=== PATIENT | female | born 1945 | race Caucasian/White ===

== ENCOUNTER 2018-11-23 20:46 | Inpatient (IN) | payer MEDICARE, OTHER ==
[~2018-11-23] VITALS: Ht 170.2 cm; Wt 57.2 kg
--- NOTE | 2018-11-23 21:08 | NUR ---
PT TO CT
--- NOTE | 2018-11-23 21:25 | NUR ---
PT'S DAUGHTER AT BEDSIDE. C/O "REALLY BAD SANTOS". DAUGHTER REPORTS PT "IS NOT A COMPLAINER AND NEVER COMPLAINS".
[2018-11-23 21:30] LABS: BASOPHILS % (AUTO) 0.2 % (0-1); EOSINOPHILS # (AUTO) 0.1 X10'3 (0-0.9); EOSINOPHILS % (AUTO) 1.4 % (0-6); HEMATOCRIT 40.9 % (35.0-45.0); HEMOGLOBIN 14.2 g/dl (12.0-16.0); MEAN CORPUSCULAR HGB CONC 34.6 % (33.0-36.5); MEAN CORPUSCULAR VOLUME 95.3 FL (78-98); MEAN PLATELET VOLUME 7.8 FL (7.4-10.4); MONOCYTES # (AUTO) 0.9 X10'3 (0-0.9); MONOCYTES % (AUTO) 8.8 % (2-12); NEUTROPHILS # (AUTO) 7.8 X10'3 (1.8-7.7); NEUTROPHILS % (AUTO) 79.6 % (42-75); PLATELET COUNT 286 X10'3 (140-440); RED CELL DISTRIBUTION WIDTH 13.4 % (11.5-14.5); WHITE BLOOD COUNT 9.7 X10'3 (4.5-11.0)
[2018-11-23 21:40] LABS: PARTIAL THROMBOPLASTIN TIME 27 SECONDS (22-32); PROTHROMBIN TIME 9.7 SECONDS (9.0-12.0)
[2018-11-23] MEDS ORDERED: acetaminophen 325mg tablet PO ONE (21:40)
--- NOTE | 2018-11-23 21:41 | NUR ---
PT WITH SEVERE SANTOS, DR CESAR UPDATED AND ALSO THAT PT NEED TO VOID. HE REQUESTS A UA. PT AGREEABLE TO SC. DAUGHTER AT [facility]
[2018-11-23 21:42] LABS: ALANINE AMINOTRANSFERASE 28 U/L (12-78); ALBUMIN/GLOBULIN RATIO 1.2 (1.1-1.5); ALKALINE PHOSPHATASE 54 IU/L (46-116); ANION GAP 10 (8-16); ASPARTATE AMINO TRANSFERASE 19 U/L (10-37); BILIRUBIN,TOTAL 0.6 MG/DL (0.1-1.0); BLOOD UREA NITROGEN 13 MG/DL (7-18); BUN/CREATININE RATIO 22.8 (6.6-38.0); CALCIUM 9.5 MG/DL (8.5-10.1); CHLORIDE 96 MMOL/L (99-107); CREATININE 0.57 MG/DL (0.40-0.90); GLUCOSE 119 MG/DL (70-104); POTASSIUM 3.2 MMOL/L (3.5-5.1); SODIUM 135 MMOL/L (135-145); TOTAL CARBON DIOXIDE 29.2 MMOL/L (24-32); TOTAL PROTEIN 7.3 G/DL (6.4-8.2); eGFR > 90 ML/MIN
[2018-11-23 21:46] LABS: TROPONIN I < 0.04 NG/ML (0.0-0.05)
--- NOTE | 2018-11-23 21:47 | NUR ---
PT TOOK HER "RESCUE MEDS" (3 IBUPROFEN AND ONE 0.5 ATIVAN) AT NOON TODAY. THIS IS A REGIME PERSCRIBED BY HER NEURLOGIST FOR WHEN SEVER SANTOS'S ARISE. PT HAS THESE EPISODES OF SEVERE SANTOS ACCOMPANIED WITH LEFT ARM NUMBNESS EVERY "6 MONTHS" (LAST IN APRIL 2018). SHE REPORTS THAT IS SHE HAS ANY ALCOHOL IT MAY BRING THEM ON. SHE LAST HAD EGGNOG AND VODKA LAST NIGHT.
[2018-11-23] MEDS ORDERED: aspirin 325mg tablet PO ONE (21:50)
[2018-11-23] MEDS ORDERED: iohexol 350MG/ML 100ml bottle IV ONE (22:14)
[2018-11-23 23:40] LABS: CLARITY,URINE SLIGHTLY CLOUDY (Clear); COLOR,URINE YELLOW (Yellow); GLUCOSE, URINE NEGATIVE (Neg); KETONES,URINE NEGATIVE (Neg); LEUKOCYTE ESTERASE ,URINE NEGATIVE (Neg); NITRITES, URINE POSITIVE (Neg); OCCULT BLOOD,URINE NEGATIVE (Neg); PROTEIN,URINE NEGATIVE (Neg); UROBILINOGEN,URINE 0.2 E.U/dL (0.2-1.0)
[2018-11-23 23:42] LABS: UA COLLECTION TYPE STRAIGHT CATH
[2018-11-24] MEDS ORDERED: CHOL400T14 PO (00:05)
[2018-11-24] MEDS ORDERED: ASCO500C15 PO (00:05)
[2018-11-24] MEDS ORDERED: GLUC100017 (00:05)
[2018-11-24] MEDS ORDERED: VITE1000C PO (00:05)
[2018-11-24 00:06] LABS: BACTERIA,URINE 4+ /HPF (Neg); MUCUS STRANDS NONE SEEN /LPF (Neg); RBC,URINE 0-2 /HPF (0-2); SQUAMOUS EPITHELIAL CELL,UR FEW /LPF (FEW); WBC,URINE 0-4 /HPF (0-4)
[2018-11-24] MEDS ORDERED: AMLO2.5T2 PO (00:10)
[2018-11-24] MEDS ORDERED: POTA10TA19 PO (00:10)
[2018-11-24] MEDS ORDERED: ASPI-1265 PO (00:10)
[2018-11-24] MEDS ORDERED: HYDR12.5 PO (00:10)
[2018-11-24] MEDS ORDERED: LEVE10006 (00:10)
[2018-11-24] MEDS ORDERED: ATEN25TA PO (00:11)
[2018-11-24] MEDS ORDERED: NORT25CA PO (00:12)
[2018-11-24] MEDS ORDERED: PRAV40TA3 PO (00:13)
[2018-11-24] MEDS ORDERED: CALC-627 (00:13)
--- NOTE | 2018-11-24 00:14 | NUR ---
MED REC PARTIALLY COMPLETED. PT ONLY KNOWS THE NAMES OF ALL THE MEDS SHE TKAES BUT DOES NOT KNOW THE DOSING SPECIFICS.
--- NOTE | 2018-11-24 00:18 | NUR ---
DR. ZHU AWARE THAT SPECIFIC DOSING ON MED REC IS NOT COMPLETED.
[2018-11-24] MEDS ORDERED: ondansetron/PF 4mg/2ml inj IV PRN (00:40)
[2018-11-24] MEDS ORDERED: HYDROmorphone 1 mg/ml syringe IV PRN (00:40)
[2018-11-24] MEDS ORDERED: HYDROmorphone inj. 0.5 MG/0.5 ML DISP.SYRIN IV PRN (00:40)
[2018-11-24] MEDS ORDERED: mag hydrox/Alum hydrox/simeth 30ml oral suspension PO PRN (00:40)
[2018-11-24] MEDS ORDERED: acetaminophen 325mg tablet PO PRN (00:40)
[2018-11-24] MEDS ORDERED: magnesium hydroxide 30ml (MOM) UD suspension PO PRN (00:40)
[2018-11-24 01:30] VITALS: BP 134/74
[2018-11-24] MEDS ORDERED: nortriptyline 25mg capsule PO ONE (04:25)
[2018-11-24] MEDS ORDERED: potassium Cl 40MEQ/NS 500ml 500 ML IV PRN ×2 (04:25)
[2018-11-24] MEDS ORDERED: potassium Cl 20 mEq SR tablet PO PRN (04:25)
[2018-11-24 06:24] LABS: MAGNESIUM 1.7 MG/DL (1.5-2.4); POTASSIUM 3.1 MMOL/L (3.5-5.1)
--- NOTE | 2018-11-24 06:30 | NUR ---
Patient in room ORTHO 4012. I have received report from SHAHEED Thornton and had the opportunity to ask questions and assume patient care.
[2018-11-24] MEDS ORDERED: levetiracetam 250mg tablet PO SCH (08:00)
[2018-11-24] MEDS ORDERED: aspirin 81mg tab.chew PO SCH (08:00)
[2018-11-24] MEDS ORDERED: heparin, porcine 5000 units/ml vial SQ SCH (08:00)
[2018-11-24] MEDS ORDERED: atenolol 25mg tablet PO SCH (08:00)
[2018-11-24] MEDS ORDERED: amLODIPine 5mg tablet PO SCH (08:00)
[2018-11-24] MEDS: potassium Cl 20 mEq SR tablet PO PRN ×2 (08:51→15:58)
[2018-11-24] MEDS ORDERED: clopidogrel 75mg tablet PO SCH (12:00)
[2018-11-24 12:21] LABS: CHOLESTEROL 218 MG/DL (0-200); HDL CHOLESTEROL 107 MG/DL (35-60); LDL CHOLESTEROL 100 MG/DL (50-100); TRIGLYCERIDES 50 MG/DL (20-135)
[2018-11-24] MEDS ORDERED: ATOR20TA PO (13:42)
[2018-11-24] MEDS ORDERED: CLOP75TA35 PO (13:42)
[2018-11-24] MEDS ORDERED: CEFD300C3 PO (15:39)
--- NOTE | 2018-11-24 16:40 | NUR ---
IV dc'd from RFA with cannula intact. No redness/swelling at insertion site. Pressure bandaid applied. Telemetry dc'd. Retrieved stored medications from the pharmacy. Gave discharge paperwork to patient/daughter and explained discharge medications. Discharged to private vehicle at 1640.
[2018-11-24] MEDS ORDERED: nortriptyline 25mg capsule PO SCH (21:00)
== END 2018-11-24 16:50 | disposition home or self-care (01) | DRG 101 ==
LOC: ER 20:46 → ED HOLD 11-24 00:38 → ORTHO 4S 11-24 01:33
PROVIDERS: ADMIT Internal Medicine; ATTEND Family Medicine
PROC: B3251ZZ Computerized Tomography (CT Scan) of Bilateral Common Carotid Arteries using Low Osmolar Contrast (ICD-10-PCS; principal; 2018-11-23)
PROC: B32G1ZZ Computerized Tomography (CT Scan) of Bilateral Vertebral Arteries using Low Osmolar Contrast (ICD-10-PCS; 2018-11-23)
PROC: B3201ZZ Computerized Tomography (CT Scan) of Thoracic Aorta using Low Osmolar Contrast (ICD-10-PCS; 2018-11-23)
PROC: B32R1ZZ Computerized Tomography (CT Scan) of Intracranial Arteries using Low Osmolar Contrast (ICD-10-PCS; 2018-11-23)
PROC: B3281ZZ Computerized Tomography (CT Scan) of Bilateral Internal Carotid Arteries using Low Osmolar Contrast (ICD-10-PCS; 2018-11-23)
DX: G40.909 Epilepsy, unspecified, not intractable, without status epilepticus (principal); R19.7 Diarrhea, unspecified; F17.200 Nicotine dependence, unspecified, uncomplicated; Z90.710 Acquired absence of both cervix and uterus; Z79.899 Other long term (current) drug therapy; Z72.89 Other problems related to lifestyle
CPT/HCPCS: 36415; 70450; 70496; 70498; 70544; 70551; 71045; 80053; 80061; 81001; 82948; 83036; 83735; 84132; 84443; 84484; 85025; 85610; 85730; 87070; 87077; 87088; 87186; 92616; 93005; 93306; 97116; 97162; 97530; 99285; G0378; J1170; J1644; Q9967

== ENCOUNTER 2019-06-17 08:40 | Day surgery (SDC) | payer MEDICARE, OTHER ==
[~2019-06-17 08:40] MED LIST: AMLO2.5T2 PO; ASCO500C15 PO; ATEN25TA PO; ATOR20TA PO; CALC-627; CHOL400T14 PO; CLOP75TA35 PO; GLUC100017; HYDR12.5 PO; LEVE10006; NORT25CA PO; POTA10TA19 PO; VITE1000C PO
[2019-06-17] MEDS ORDERED: LIDOcaine 2% 5ml jelly ONE (09:29)
--- NOTE | 2019-06-17 09:41 | NUR ---
Patient's prior medication list from this facility shows Plavix on med list. 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 Patient states she does not take Plavix but hospital recordss from here in November 2018 show discharge on Plavix. Patient is not clear on her diagnosis and is strongly advised by RN to follow up with her PMD about the Plavix. Addendum: 06/17/19 at 5088 by Gabriela Boyce RN Amended: Links added.
--- NOTE | 2019-06-17 13:20 | NUR ---
Patient ambulated independently from central hospital and was admitted to outpatient wound care for physician visit with Kush Juarez MD. Dressing removed, wound cleansed. New patient assessment completed with review of patient's medical history and current medications and allergies (see prior note). 1000 - Dr. Juarez at bedside accompanied by RN. Wound assessed, time out performed by MD/RN. Wound debrided as detailed in the physician progress/procedure note. Plan of care discussed with patient. Dressings placed per MD orders. Patient instructed on the signs and symptoms of infection and to call the Wound Center if any occur or to go to the ED if we are closed: Increased pain in wound Increase in drainage from the wound Redness in the skin surrounding the wound Bleeding from the wound Temperature of 101 or greater Patient instructed that the weight of their body puts a large amount of pressure on their wounds. This pressure keeps the new tissue from growing and inhibits new blood vessels from forming. Explained that, if they continue to bear weight on a body part that has a wound, the time it takes to heal the wound increases, the wound may get worse or the wound may not heal at all. Patient verbalized understanding of all discharge instructions and plan of care and ambulated independently out to central hospital in stable condition with no sign or symptom of distress at time of discharge.
== END 2019-06-17 10:33 | disposition home or self-care (01) ==
LOC: WOUND CARE 08:40
PROVIDERS: ATTEND Surgery
DX: I83.012 Varicose veins of right lower extremity with ulcer of calf (principal); I70.232 Atherosclerosis of native arteries of right leg with ulceration of calf; L97.212 Non-pressure chronic ulcer of right calf with fat layer exposed; I83.022 Varicose veins of left lower extremity with ulcer of calf; I70.242 Atherosclerosis of native arteries of left leg with ulceration of calf; L97.222 Non-pressure chronic ulcer of left calf with fat layer exposed; Z79.899 Other long term (current) drug therapy
CPT/HCPCS: 97597; A4663; A6021; A6154; A6446

== ENCOUNTER 2019-06-24 08:45 | Day surgery (SDC) | payer MEDICARE, OTHER ==
[~2019-06-24 08:45] MED LIST changes: -CLOP75TA35 PO
[2019-06-24] MEDS ORDERED: LIDOcaine/PRILOcaine 5gm cream TP ONE (09:25)
== END 2019-06-24 12:05 | disposition home or self-care (01) ==
LOC: WOUND CARE 08:45
PROVIDERS: ATTEND Surgery
DX: I83.012 Varicose veins of right lower extremity with ulcer of calf (principal); I70.232 Atherosclerosis of native arteries of right leg with ulceration of calf; L97.212 Non-pressure chronic ulcer of right calf with fat layer exposed; I83.022 Varicose veins of left lower extremity with ulcer of calf; I70.242 Atherosclerosis of native arteries of left leg with ulceration of calf; L97.222 Non-pressure chronic ulcer of left calf with fat layer exposed; Z79.899 Other long term (current) drug therapy
CPT/HCPCS: 93922; 93925; 97597; A4663; A6021; A6154; A6446

== ENCOUNTER 2021-07-11 14:52 | Inpatient (IN) | payer MEDICARE, OTHER ==
[~2021-07-11] VITALS: Ht 170.2 cm; Wt 63.6 kg
[~2021-07-11 14:52] MED LIST changes: -ASCO500C15 PO; +ASCO500C18 PO
[2021-07-11] MEDS ORDERED: LORazepam 2 mg/ml vial ONE (15:03)
[2021-07-11] MEDS ORDERED: LORazepam 2 mg/ml vial IV ONE (15:05)
[2021-07-11] MEDS ORDERED: iohexol 350MG/ML 100ml bottle IV ONE (15:07)
--- NOTE | 2021-07-11 15:08 | NUR ---
I was paged for a level 1 stroke alert and when I came in she was already at CT scan. Assisted the nurse in bringing her back to room [address] scan.
[2021-07-11 15:11] LABS: BASOPHILS % (AUTO) 0.4 % (0-1); EOSINOPHILS # (AUTO) 0.1 X10'3 (0-0.9); HEMATOCRIT 43.3 % (35.0-45.0); HEMOGLOBIN 14.9 g/dl (12.0-16.0); LYMPHOCYTES # (AUTO) 0.5 X10'3 (1.1-4.8); LYMPHOCYTES % (AUTO) 6.9 % (21-51); MEAN CORPUSCULAR HEMOGLOBIN 33.5 PG (27.0-31.0); MEAN CORPUSCULAR HGB CONC 34.3 g/dL (33.0-36.5); MEAN CORPUSCULAR VOLUME 97.6 FL (78-98); MEAN PLATELET VOLUME 7.9 FL (7.4-10.4); MONOCYTES # (AUTO) 0.5 X10'3 (0-0.9); MONOCYTES % (AUTO) 6.9 % (2-12); NEUTROPHILS # (AUTO) 6.6 X10'3 (1.8-7.7); NEUTROPHILS % (AUTO) 84.8 % (42-75); PLATELET COUNT 270 X10'3 (140-440); RED BLOOD COUNT 4.43 X10'6 (4.20-5.60); RED CELL DISTRIBUTION WIDTH 14.1 % (11.5-14.5); WHITE BLOOD COUNT 7.8 X10'3 (4.5-11.0)
[2021-07-11 15:21] LABS: PARTIAL THROMBOPLASTIN TIME 29 SECONDS (22-32)
[2021-07-11 15:26] LABS: ALANINE AMINOTRANSFERASE 24 U/L (12-78); ALBUMIN 4.7 G/DL (3.4-5.0); ALBUMIN/GLOBULIN RATIO 1.5 (1.1-1.5); ALKALINE PHOSPHATASE 50 IU/L (46-116); ANION GAP 14 (8-16); ASPARTATE AMINO TRANSFERASE 19 U/L (10-37); BILIRUBIN,TOTAL 0.6 MG/DL (0.1-1.0); BLOOD UREA NITROGEN 9 MG/DL (7-18); BUN/CREATININE RATIO 13.4 (6.6-38.0); CALCIUM 9.6 MG/DL (8.5-10.1); CHLORIDE 97 MMOL/L (99-107); CREATININE 0.67 MG/DL (0.40-0.90); GLUCOSE 124 MG/DL (70-104); POTASSIUM 3.7 MMOL/L (3.5-5.1); SODIUM 136 MMOL/L (135-145); TOTAL CARBON DIOXIDE 25.2 MMOL/L (24-32); TOTAL PROTEIN 7.8 G/DL (6.4-8.2); eGFR 86 ML/MIN
[2021-07-11 15:29] LABS: TROPONIN I < 0.04 NG/ML (0.0-0.05)
--- NOTE | 2021-07-11 15:40 | NUR ---
Brookeound this time she gave verbal consent for tele neuro evaluation and the doctor came on video. From talking to the patient it appears that her symptoms of the left arm shaking,and numbness to the left hand occur frequently. Possibly the left sided weakness not as frequent occurances but not sure if this is accurate since patient appears confused about her medical history. Talking to the patient she had a neurologist but fired her since she wasn't getting results of labs and tests called to her. Addendum: 07/11/21 at 1630 by JELLY Patient denies having seizure history but the more I talk to her and reviewing her past medical history it appears she probably does have seizure or epilepsy diagnosis.
--- NOTE | 2021-07-11 15:55 | NUR ---
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 She said she has a history of this and was down in [place] recently this month seeing an occupational therapist in regards to this defecit.
[2021-07-11] MEDS ORDERED: mag hydrox/Alum hydrox/simeth 30ml oral suspension PO PRN (17:25)
[2021-07-11] MEDS ORDERED: potassium Cl 20 mEq SR tablet PO PRN (17:25)
[2021-07-11] MEDS ORDERED: ondansetron/PF 4mg/2ml inj IV PRN (17:25)
[2021-07-11] MEDS ORDERED: bisacodyl 10mg suppository rectal RC PRN (17:25)
[2021-07-11] MEDS ORDERED: potassium Cl 40MEQ/1/2NS 520ml 520 ML IV PRN ×2 (17:25)
[2021-07-11] MEDS ORDERED: magnesium 2GM in 50ml NS 50 ML IV PRN (17:25)
[2021-07-11] MEDS ORDERED: acetaminophen 650mg rectal suppository RC PRN (17:25)
[2021-07-11] MEDS ORDERED: morphine 2 MG/ML inj. syringe IV PRN ×2 (17:25)
[2021-07-11] MEDS ORDERED: acetaminophen 325mg tablet PO PRN ×2 (17:25)
[2021-07-11] MEDS ORDERED: PERFLUTREN PROTEIN-A MICROSPHR (Optison) 0.22 MG/ML 3ML VIAL IV PRN (17:25)
[2021-07-11] MEDS ORDERED: HYDROcodone/acetaminophen 5mg/325mg tablet PO PRN (17:25)
[2021-07-11] MEDS ORDERED: diphenhydrAMINE 25mg capsule PO PRN (17:25)
[2021-07-11] MEDS ORDERED: magnesium 4gm in 100ml NS 100 ML IV PRN (17:25)
[2021-07-11] MEDS ORDERED: HYDROcodone/acetaminophen 10/325mg tab PO PRN (17:25)
[2021-07-11] MEDS ORDERED: magnesium hydroxide 30ml (MOM) UD suspension PO PRN (17:25)
[2021-07-11] MEDS ORDERED: magnesium Cl slow-release 64mg tablet PO PRN (17:25)
[2021-07-11] MEDS ORDERED: DONE10TA44 PO (17:27)
[2021-07-11] MEDS ORDERED: ATEN-54 PO (17:27)
[2021-07-11] MEDS ORDERED: ATOR20TA66 PO (17:27)
[2021-07-11] MEDS ORDERED: HYDR25TA5 PO (17:27)
[2021-07-11] MEDS ORDERED: AMLO10TA13 PO (17:27)
[2021-07-11] MEDS ORDERED: HYDR25TA4 PO (17:27)
[2021-07-11] MEDS ORDERED: LEVE500T PO (17:27)
[2021-07-11 18:09] LABS: CHOL/HDL RATIO 1.8 (0.00-4.99); CHOLESTEROL 222 MG/DL (0-200); HDL CHOLESTEROL 123 MG/DL (35-60); LDL CHOLESTEROL 66 MG/DL (50-100); TRIGLYCERIDES 77 MG/DL (20-135)
[2021-07-11 18:12] LABS: CLARITY,URINE CLOUDY (Clear); COLOR,URINE YELLOW (Yellow); GLUCOSE, URINE NEGATIVE (Neg); KETONES,URINE NEGATIVE (Neg); LEUKOCYTE ESTERASE ,URINE NEGATIVE (Neg); NITRITES, URINE NEGATIVE (Neg); OCCULT BLOOD,URINE NEGATIVE (Neg); PROTEIN,URINE NEGATIVE (Neg); UROBILINOGEN,URINE 0.2 E.U/dL (0.2-1.0)
[2021-07-11 18:21] LABS: BACTERIA,URINE 4+ /HPF (Neg); RBC,URINE NONE SEEN /HPF (0-2); SQUAMOUS EPITHELIAL CELL,UR FEW /LPF (FEW); UA COLLECTION TYPE CLN CATCH MIDSTREAM
[2021-07-11] MEDS: aspirin 81mg, enteric-coated 1 TAB TABLET.DR PO SCH (18:31)
[2021-07-11] MEDS: normal saline 1000ml 1,000 ML IV SCH (18:36)
[2021-07-11 18:38] LABS: HEMOGLOBIN A1C 5.7 % (4.5-6.2)
--- NOTE | 2021-07-11 18:52 | NUR ---
PT UP AND AMBULATING IN THE ROOM WITH STEADY GAIT. PT REPORTS OCCASIONAL ISSUES WITH DRIBBLING OF URINE BYUT STATES WEARING A PAD HELPS AND THAT SHE CAN MAKE IT TO BR INDEPENDANTLY BUT "WHEN i HAVE TO GO i HAVE TO GET TO THE TOILET QUICKLY". REPORTS SHE IS THINKING A BIT SLOWER THAN USUAL, A&OX4. NEGATIVE STROKE SCALE, NO DEFICITS NOTED. DENIES ANY FURTHER BUZZING IN THE EAR AND NO L HAND NUMBNESS. AWAITING IPA.
[2021-07-11] MEDS: K and/or MAG REPLACEMENT MC SCH (18:59)
[2021-07-11] MEDS: docusate sod 100mg capsule PO SCH (18:59)
[2021-07-11] MEDS: heparin, porcine 5000 units/ml vial SQ SCH (19:09)
[2021-07-11] MEDS: LACOSAMIDE 50 MG TABLET PO SCH (20:18)
[2021-07-12 03:36] LABS: BASOPHILS % (AUTO) 0.6 % (0-1); EOSINOPHILS # (AUTO) 0.4 X10'3 (0-0.9); EOSINOPHILS % (AUTO) 5.2 % (0-6); HEMATOCRIT 40.6 % (35.0-45.0); HEMOGLOBIN 13.6 g/dl (12.0-16.0); LYMPHOCYTES % (AUTO) 13.7 % (21-51); MEAN CORPUSCULAR HEMOGLOBIN 32.7 PG (27.0-31.0); MEAN CORPUSCULAR HGB CONC 33.4 g/dL (33.0-36.5); MEAN CORPUSCULAR VOLUME 97.9 FL (78-98); MEAN PLATELET VOLUME 7.9 FL (7.4-10.4); MONOCYTES # (AUTO) 0.9 X10'3 (0-0.9); MONOCYTES % (AUTO) 12.1 % (2-12); NEUTROPHILS # (AUTO) 5.2 X10'3 (1.8-7.7); NEUTROPHILS % (AUTO) 68.4 % (42-75); PLATELET COUNT 267 X10'3 (140-440); RED BLOOD COUNT 4.14 X10'6 (4.20-5.60); RED CELL DISTRIBUTION WIDTH 13.8 % (11.5-14.5); WHITE BLOOD COUNT 7.6 X10'3 (4.5-11.0)
[2021-07-12 04:06] LABS: ALANINE AMINOTRANSFERASE 21 U/L (12-78); ALBUMIN 3.8 G/DL (3.4-5.0); ALBUMIN/GLOBULIN RATIO 1.5 (1.1-1.5); ALKALINE PHOSPHATASE 38 IU/L (46-116); ANION GAP 8 (8-16); ASPARTATE AMINO TRANSFERASE 18 U/L (10-37); BILIRUBIN,TOTAL 0.5 MG/DL (0.1-1.0); BLOOD UREA NITROGEN 10 MG/DL (7-18); CALCIUM 8.8 MG/DL (8.5-10.1); CHLORIDE 104 MMOL/L (99-107); CHOL/HDL RATIO 1.8 (0.00-4.99); CHOLESTEROL 189 MG/DL (0-200); GLUCOSE 84 MG/DL (70-104); HDL CHOLESTEROL 107 MG/DL (35-60); LDL CHOLESTEROL 62 MG/DL (50-100); MAGNESIUM 1.8 MG/DL (1.5-2.4); PHOSPHORUS 2.8 MG/DL (2.3-4.5); POTASSIUM 3.3 MMOL/L (3.5-5.1); SODIUM 141 MMOL/L (135-145); TOTAL CARBON DIOXIDE 28.9 MMOL/L (24-32); TOTAL PROTEIN 6.3 G/DL (6.4-8.2); TRIGLYCERIDES 99 MG/DL (20-135); eGFR > 90 ML/MIN
[2021-07-12] MEDS: potassium Cl 20 mEq SR tablet PO PRN ×3 (05:50→16:14)
[2021-07-12 08:00] VITALS: BP 137/65
[2021-07-12] MEDS: K and/or MAG REPLACEMENT MC SCH ×2 (08:00→20:00)
--- NOTE | 2021-07-12 08:34 | NUR ---
Patient in room ED 15. I have received report from EMMANUEL HUMMEL and had the opportunity to ask questions and assume patient care.
--- NOTE | 2021-07-12 09:45 | NUR ---
JUST RECEIVED PT AT 0900. WAITING ON ROCEPHIN.
[2021-07-12] MEDS: docusate sod 100mg capsule PO SCH ×2 (09:48→20:00)
[2021-07-12] MEDS: aspirin 81mg, enteric-coated 1 TAB TABLET.DR PO SCH (09:48)
[2021-07-12] MEDS: heparin, porcine 5000 units/ml vial SQ SCH ×2 (09:52→20:12)
[2021-07-12 10:00] VITALS: BP 155/63
[2021-07-12] MEDS: CefTRIAXone/D5W-Rocephin 1gm 50 ML IV SCH (11:54)
[2021-07-12] MEDS: LACOSAMIDE 50 MG TABLET PO SCH ×2 (11:55→20:10)
[2021-07-12] MEDS: normal saline 1000ml 1,000 ML IV SCH ×2 (11:57→20:12)
--- NOTE | 2021-07-12 13:22 | NUR ---
Page Sent promotional table spacer PAGER ID: [phone] MESSAGE: PT HAS ITCHING AND WET IN GROIN WOULD YOU LIKE PT TO HAVE NYSTATIN POWDER?
--- NOTE | 2021-07-12 13:50 | NUR ---
Page Sent PAGER ID: [phone] MESSAGE: [id number] Dileep, pt is having itching in groin, it is wet and moist. would you like to put nystatin on it? thanks negra [phone]
--- NOTE | 2021-07-12 16:34 | NUR ---
Page Sent PAGER ID: [phone] MESSAGE: [id number] Dileep, none of pts home meds are on emar, she is taking some BP meds. could you look at med rec please. thank you negra [phone]
[2021-07-12 18:00] VITALS: BP 162/70
--- NOTE | 2021-07-12 18:37 | NUR ---
Problems reprioritized. Patient report given, questions answered & plan of care reviewed with shaina santos.
[2021-07-12] MEDS: lactobacillus rhamnosus 10,000 MMU CELLS/CAPSULE PO SCH (20:10)
[2021-07-12 22:00] VITALS: BP_SYST 122; BP_SYST 143; BP_SYST 152; BP_DIAS 55; BP_DIAS 56; BP_DIAS 62
[2021-07-13 06:42] VITALS: BP 147/69
[2021-07-13 07:04] LABS: BASOPHILS % (AUTO) 0.6 % (0-1); EOSINOPHILS # (AUTO) 0.3 X10'3 (0-0.9); EOSINOPHILS % (AUTO) 5.7 % (0-6); HEMATOCRIT 42.7 % (35.0-45.0); HEMOGLOBIN 14.7 g/dl (12.0-16.0); LYMPHOCYTES # (AUTO) 0.8 X10'3 (1.1-4.8); LYMPHOCYTES % (AUTO) 13.4 % (21-51); MEAN CORPUSCULAR HEMOGLOBIN 33.2 PG (27.0-31.0); MEAN CORPUSCULAR HGB CONC 34.4 g/dL (33.0-36.5); MEAN CORPUSCULAR VOLUME 96.3 FL (78-98); MONOCYTES # (AUTO) 0.7 X10'3 (0-0.9); MONOCYTES % (AUTO) 11.4 % (2-12); NEUTROPHILS # (AUTO) 4.2 X10'3 (1.8-7.7); NEUTROPHILS % (AUTO) 68.9 % (42-75); PLATELET COUNT 269 X10'3 (140-440); RED BLOOD COUNT 4.43 X10'6 (4.20-5.60); RED CELL DISTRIBUTION WIDTH 13.7 % (11.5-14.5); WHITE BLOOD COUNT 6.1 X10'3 (4.5-11.0)
[2021-07-13] MEDS: aspirin 81mg, enteric-coated 1 TAB TABLET.DR PO SCH (07:18)
[2021-07-13] MEDS: lactobacillus rhamnosus 10,000 MMU CELLS/CAPSULE PO SCH (07:18)
[2021-07-13] MEDS: docusate sod 100mg capsule PO SCH (07:18)
[2021-07-13] MEDS: LACOSAMIDE 50 MG TABLET PO SCH (07:19)
[2021-07-13] MEDS: CefTRIAXone/D5W-Rocephin 1gm 50 ML IV SCH (07:19)
[2021-07-13] MEDS: heparin, porcine 5000 units/ml vial SQ SCH (07:20)
[2021-07-13 07:59] LABS: ALANINE AMINOTRANSFERASE 22 U/L (12-78); ALBUMIN 4.1 G/DL (3.4-5.0); ALBUMIN/GLOBULIN RATIO 1.4 (1.1-1.5); ALKALINE PHOSPHATASE 50 IU/L (46-116); ANION GAP 9 (8-16); ASPARTATE AMINO TRANSFERASE 17 U/L (10-37); BILIRUBIN,TOTAL 0.6 MG/DL (0.1-1.0); BLOOD UREA NITROGEN 8 MG/DL (7-18); BUN/CREATININE RATIO 12.9 (6.6-38.0); CALCIUM 9.5 MG/DL (8.5-10.1); CHLORIDE 105 MMOL/L (99-107); CREATININE 0.62 MG/DL (0.40-0.90); GLUCOSE 103 MG/DL (70-104); MAGNESIUM 1.8 MG/DL (1.5-2.4); PHOSPHORUS 3.2 MG/DL (2.3-4.5); POTASSIUM 3.9 MMOL/L (3.5-5.1); SODIUM 140 MMOL/L (135-145); TOTAL CARBON DIOXIDE 25.6 MMOL/L (24-32); TOTAL PROTEIN 7.1 G/DL (6.4-8.2); eGFR > 90 ML/MIN
[2021-07-13] MEDS ORDERED: amLODIPine 5mg tablet PO SCH (08:00)
[2021-07-13] MEDS ORDERED: atorvastatin 20mg tablet PO SCH (08:00)
[2021-07-13] MEDS ORDERED: donepezil 5mg tablet PO SCH (08:00)
[2021-07-13] MEDS ORDERED: HYDROchlorothiazide 25mg tablet PO SCH (08:00)
[2021-07-13] MEDS ORDERED: HYDROchlorothiazide 12.5mg capsule PO SCH (08:00)
[2021-07-13] MEDS ORDERED: atenolol 25mg tablet PO SCH (08:00)
[2021-07-13] MEDS: K and/or MAG REPLACEMENT MC SCH (08:00)
[2021-07-13] MEDS ORDERED: LACT1CAP26 PO (09:04)
[2021-07-13] MEDS ORDERED: CEFD300C3 PO (09:04)
[2021-07-13] MEDS ORDERED: ASPI-1071 PO (09:04)
[2021-07-13] MEDS ORDERED: LACO50TA2 PO (09:04)
[2021-07-13] MEDS: normal saline 1000ml 1,000 ML IV SCH (09:25)
[2021-07-13 11:00] VITALS: BP 155/65
--- NOTE | 2021-07-13 11:08 | NUR ---
PT DISCHARGED IN STABLE CONDITION. LEFT FACILITY IN PRIVATE VEHICLE WITH DAUGHTER. IV DC, TELE REMOVED. FOLLOW UP INSTRUCTIONS GIVEN, INCLUDING INSTRUCTIONS TO NOT DRIVE A VEHICLE AND TO CONT TAKE SEIZURE MEDICATION PRESCRIBED. ALL BELONGINGS IN HAND. Addendum: 07/13/21 at 1110 by Jennifer Hensley RN Amended: Links added.
== END 2021-07-13 11:05 | disposition home or self-care (01) | DRG 101 ==
LOC: ER 14:52 → ED HOLD 17:43 → ORTHO 4S 07-12 09:00
PROVIDERS: ADMIT Family Medicine; ATTEND Family Medicine
PROC: B3251ZZ Computerized Tomography (CT Scan) of Bilateral Common Carotid Arteries using Low Osmolar Contrast (ICD-10-PCS; principal; 2021-07-11)
PROC: B32G1ZZ Computerized Tomography (CT Scan) of Bilateral Vertebral Arteries using Low Osmolar Contrast (ICD-10-PCS; 2021-07-11)
PROC: B32R1ZZ Computerized Tomography (CT Scan) of Intracranial Arteries using Low Osmolar Contrast (ICD-10-PCS; 2021-07-11)
PROC: B3281ZZ Computerized Tomography (CT Scan) of Bilateral Internal Carotid Arteries using Low Osmolar Contrast (ICD-10-PCS; 2021-07-11)
DX: G40.409 Other generalized epilepsy and epileptic syndromes, not intractable, without status epilepticus (principal); N39.0 Urinary tract infection, site not specified; G83.84 Todd's paralysis (postepileptic); B96.20 Unspecified Escherichia coli [E. coli] as the cause of diseases classified elsewhere; E78.00 Pure hypercholesterolemia, unspecified; E78.5 Hyperlipidemia, unspecified; I10 Essential (primary) hypertension; F17.210 Nicotine dependence, cigarettes, uncomplicated; E87.6 Hypokalemia; Z60.2 Problems related to living alone; R29.704 NIHSS score 4; Z80.1 Family history of malignant neoplasm of trachea, bronchus and lung; Z86.73 Personal history of transient ischemic attack (TIA), and cerebral infarction without residual deficits; Z90.710 Acquired absence of both cervix and uterus; Z91.14 Patient's other noncompliance with medication regimen; Z79.82 Long term (current) use of aspirin; Z88.1 Allergy status to other antibiotic agents; Z88.8 Allergy status to other drugs, medicaments and biological substances; Z71.6 Tobacco abuse counseling; Z79.899 Other long term (current) drug therapy
CPT/HCPCS: 36415; 70450; 70496; 70498; 70551; 71045; 80053; 80061; 81001; 83036; 83735; 84100; 84484; 85025; 85610; 85651; 85730; 87077; 87081; 87088; 87186; 92508; 92616; 93005; 93306; 96374; 97161; 97530; 99291; G0378; J0696; J1644; J2060; J7030; Q9967

== ENCOUNTER 2022-06-12 20:15 | Emergency (ER) | payer MEDICARE, OTHER ==
[~2022-06-12] VITALS: Ht 172.7 cm; Wt 63.6 kg
[~2022-06-12 20:15] MED LIST changes: +AMLO10TA13 PO; -AMLO2.5T2 PO; -ASCO500C18 PO; +ASPI-1071 PO; +ATEN-54 PO; -ATEN25TA PO; -ATOR20TA PO; +ATOR20TA66 PO; -CALC-627; -CHOL400T14 PO; -GLUC100017; -HYDR12.5 PO; +HYDR25TA5 PO; -LEVE10006; +LEVE250T PO; -NORT25CA PO; -POTA10TA19 PO; -VITE1000C PO
[2022-06-12 21:07] VITALS: BP 115/64
[2022-06-13] MEDS ORDERED: LIDOcaine 1% W/epiNEPHrine 1:100,000 20ml vial SQ ONE (00:40)
[2022-06-13] MEDS ORDERED: TETanus/Pertussis (Acell)/Diphther VAC/PF (Tdap-Adult) 0.5ml syringe IMVAC ONE (01:35)
[2022-06-13] MEDS ORDERED: ceFAZolin 1gm IM kit IM ONE (01:35)
[2022-06-13] MEDS ORDERED: CEPH-585 PO (01:52)
[2022-06-13] MEDS ORDERED: acetaminophen 325mg tablet PO ONE (02:20)
== END 2022-06-13 02:41 | disposition home or self-care (01) ==
LOC: ER 20:16
DX: S81.811A Laceration without foreign body, right lower leg, initial encounter (principal); W19.XXXA Unspecified fall, initial encounter; Y93.89 Activity, other specified; Y92.89 Other specified places as the place of occurrence of the external cause; Y99.8 Other external cause status
CPT/HCPCS: 12004; 12005; 90471; 90715; 96372; 99284; J0690; J3490; J7030; A6446; A6449

== ENCOUNTER 2023-03-22 21:51 | Emergency (ER) | payer MEDICARE, OTHER ==
[~2023-03-22] VITALS: Ht 172.7 cm; Wt 57.7 kg
[2023-03-22] MEDS ORDERED: normal saline 1000ML IV soln IVB ONE (22:40)
[2023-03-22 23:05] LABS: BASOPHILS % (AUTO) 0.3 % (0-1); EOSINOPHILS # (AUTO) 0.1 X10'3 (0-0.9); EOSINOPHILS % (AUTO) 1.3 % (0-6); HEMATOCRIT 36.3 % (35.0-45.0); HEMOGLOBIN 12.8 g/dl (12.0-16.0); LYMPHOCYTES # (AUTO) 0.7 X10'3 (1.1-4.8); LYMPHOCYTES % (AUTO) 6.8 % (21-51); MEAN CORPUSCULAR HEMOGLOBIN 34.5 PG (27.0-31.0); MEAN CORPUSCULAR HGB CONC 35.4 g/dL (33.0-36.5); MEAN CORPUSCULAR VOLUME 97.5 FL (78-98); MEAN PLATELET VOLUME 6.9 FL (7.4-10.4); MONOCYTES # (AUTO) 0.7 X10'3 (0-0.9); MONOCYTES % (AUTO) 6.7 % (2-12); NEUTROPHILS % (AUTO) 84.9 % (42-75); PLATELET COUNT 276 X10'3 (140-440); RED BLOOD COUNT 3.72 X10'6 (4.20-5.60); RED CELL DISTRIBUTION WIDTH 13.6 % (11.5-14.5); WHITE BLOOD COUNT 10.6 X10'3 (4.5-11.0)
[2023-03-22 23:15] LABS: ALANINE AMINOTRANSFERASE 27 U/L (12-78); ALBUMIN/GLOBULIN RATIO 1.4 (1.1-1.5); ALKALINE PHOSPHATASE 52 IU/L (46-116); ANION GAP 9 (8-16); ASPARTATE AMINO TRANSFERASE 24 U/L (10-37); BILIRUBIN,TOTAL 0.3 MG/DL (0.1-1.0); BLOOD UREA NITROGEN 15 MG/DL (7-18); BUN/CREATININE RATIO 22.4 (10.0-20.0); CALCIUM 9.4 MG/DL (8.5-10.1); CHLORIDE 95 MMOL/L (99-107); CREATININE 0.67 MG/DL (0.40-0.90); GLUCOSE 120 MG/DL (70-104); POTASSIUM 3.5 MMOL/L (3.5-5.1); SODIUM 131 MMOL/L (135-145); TOTAL CARBON DIOXIDE 27.5 MMOL/L (24-32); TOTAL PROTEIN 6.9 G/DL (6.4-8.2); eGFR 85 ML/MIN
[2023-03-23 00:44] LABS: CLARITY,URINE CLEAR (Clear); COLOR,URINE YELLOW (Yellow); GLUCOSE, URINE NEGATIVE (Neg); KETONES,URINE NEGATIVE (Neg); LEUKOCYTE ESTERASE ,URINE SMALL (Neg); NITRITES, URINE NEGATIVE (Neg); OCCULT BLOOD,URINE NEGATIVE (Neg); PROTEIN,URINE TRACE mg/dl (Neg); UROBILINOGEN,URINE 0.2 E.U/dL (0.2-1.0)
[2023-03-23 00:49] LABS: UA COLLECTION TYPE CLN CATCH MIDSTREAM
[2023-03-23 00:54] LABS: BACTERIA,URINE NONE SEEN /HPF (Neg); RBC,URINE 0-2 /HPF (0-2); SQUAMOUS EPITHELIAL CELL,UR FEW /LPF (FEW)
[2023-03-23] MEDS ORDERED: SULF1TAB49 PO (01:16)
[2023-03-23 01:54] VITALS: BP 138/64
== END 2023-03-23 01:56 | disposition home or self-care (01) ==
LOC: ER 21:51
DX: R56.9 Unspecified convulsions (principal); N39.0 Urinary tract infection, site not specified; E78.00 Pure hypercholesterolemia, unspecified; I10 Essential (primary) hypertension; E07.9 Disorder of thyroid, unspecified; F17.200 Nicotine dependence, unspecified, uncomplicated; Z88.1 Allergy status to other antibiotic agents; Z88.8 Allergy status to other drugs, medicaments and biological substances
CPT/HCPCS: 36415; 80053; 81001; 85025; 87088; 93005; 99284; J7030

== ENCOUNTER 2023-12-05 13:22 | Emergency (ER) | payer MEDICARE, OTHER ==
[~2023-12-05] VITALS: Ht 172.7 cm; Wt 57.7 kg
[2023-12-05 15:06] LABS: BASOPHILS % (AUTO) 0.3 % (0-1); EOSINOPHILS # (AUTO) 0.1 X10'3 (0-0.9); EOSINOPHILS % (AUTO) 0.8 % (0-6); HEMATOCRIT 40.9 % (35.0-45.0); HEMOGLOBIN 14.1 g/dl (12.0-16.0); LYMPHOCYTES # (AUTO) 0.7 X10'3 (1.1-4.8); MEAN CORPUSCULAR HEMOGLOBIN 33.5 PG (27.0-31.0); MEAN CORPUSCULAR HGB CONC 34.4 g/dL (33.0-36.5); MEAN CORPUSCULAR VOLUME 97.3 FL (78-98); MEAN PLATELET VOLUME 7.5 FL (7.4-10.4); MONOCYTES # (AUTO) 0.8 X10'3 (0-0.9); MONOCYTES % (AUTO) 8.9 % (2-12); NEUTROPHILS # (AUTO) 7.2 X10'3 (1.8-7.7); PLATELET COUNT 328 X10'3 (140-440); RED BLOOD COUNT 4.21 X10'6 (4.20-5.60); RED CELL DISTRIBUTION WIDTH 12.5 % (11.5-14.5); WHITE BLOOD COUNT 8.8 X10'3 (4.5-11.0)
[2023-12-05 15:26] LABS: BILIRUBIN,URINE NEGATIVE (Neg); CLARITY,URINE SLIGHTLY CLOUDY (Clear); COLOR,URINE YELLOW (Yellow); GLUCOSE, URINE NEGATIVE (Neg); KETONES,URINE NEGATIVE (Neg); LEUKOCYTE ESTERASE ,URINE TRACE (Neg); NITRITES, URINE POSITIVE (Neg); OCCULT BLOOD,URINE NEGATIVE (Neg); PH,URINE 6.5 (4.8-8.0); PROTEIN,URINE NEGATIVE (Neg); UROBILINOGEN,URINE 0.2 E.U/dL (0.2-1.0)
[2023-12-05 15:31] LABS: URINE AMPHETAMINE SCREEN NEGATIVE (Neg); URINE BARBITUATE SCREEN NEGATIVE (Neg); URINE BENZODIAZEPINES SCREEN NEGATIVE (Neg); URINE CANNABINOID SCREEN NEGATIVE (Neg); URINE COCAINE SCREEN NEGATIVE (Neg); URINE METHADONE SCREEN NEGATIVE (Neg); URINE OPIATE SCREEN NEGATIVE (Neg); URINE PHENCYCLIDINE SCREEN NEGATIVE (Neg)
[2023-12-05 15:36] LABS: UA COLLECTION TYPE CLN CATCH MIDSTREAM
[2023-12-05 15:42] LABS: SQUAMOUS EPITHELIAL CELL,UR MANY /LPF (FEW); TRANSITIONAL EPI CELLS,URINE FEW /HPF
[2023-12-05 15:43] LABS: RBC,URINE 0-2 /HPF (0-2)
[2023-12-05 15:44] LABS: BACTERIA,URINE 3+ /HPF (Neg); MUCUS STRANDS FEW /LPF (Neg)
[2023-12-05 15:48] LABS: ALANINE AMINOTRANSFERASE 21 U/L (12-78); ALBUMIN 4.2 G/DL (3.4-5.0); ALBUMIN/GLOBULIN RATIO 1.3 (1.1-1.5); ALKALINE PHOSPHATASE 54 IU/L (46-116); ANION GAP 7 (8-16); ASPARTATE AMINO TRANSFERASE 20 U/L (10-37); BILIRUBIN,TOTAL 0.8 MG/DL (0.1-1.0); BLOOD UREA NITROGEN 11 MG/DL (7-18); BUN/CREATININE RATIO 16.7 (10.0-20.0); CALCIUM 9.7 MG/DL (8.5-10.1); CHLORIDE 94 MMOL/L (99-107); CREATININE 0.66 MG/DL (0.40-0.90); GLUCOSE 94 MG/DL (70-104); POTASSIUM 3.6 MMOL/L (3.5-5.1); SODIUM 129 MMOL/L (135-145); TOTAL CARBON DIOXIDE 27.7 MMOL/L (24-32); TOTAL PROTEIN 7.4 G/DL (6.4-8.2); eCRCL 64 ML/MIN; eGFR 87 ML/MIN
[2023-12-05 15:56] LABS: PRO BRAIN NATRIURETIC PEPTIDE 135 PG/ML (0-450)
[2023-12-05] MEDS ORDERED: lamoTRIgine 100mg tablet PO SCH (16:20)
[2023-12-05] MEDS ORDERED: iohexol 350MG/ML 100ml bottle IV ONE (18:25)
[2023-12-05 18:26] LABS: APTT 30 SECONDS (22-32); INR 0.9 INR; PROTHROMBIN TIME 10.1 SECONDS (9.0-12.0)
[2023-12-05] MEDS ORDERED: levetiracetam inj 1,000 MG in normal saline 100ml IV soln 100 ML IV STA (18:45)
[2023-12-05 20:34] VITALS: O2SAT 98
[2023-12-05 20:59] VITALS: BP 144/63; PULSE 79; RESP 18; TEMP 98.6
[2023-12-07] MEDS ORDERED: levoFLOXACIN-Levaquin 500mg/D5 100 ML IV SCH (08:00)
== END 2023-12-05 21:35 | disposition short-term general hospital (02) ==
LOC: ER 13:23
DX: I60.9 Nontraumatic subarachnoid hemorrhage, unspecified (principal); G40.901 Epilepsy, unspecified, not intractable, with status epilepticus; E78.00 Pure hypercholesterolemia, unspecified; I10 Essential (primary) hypertension; E07.9 Disorder of thyroid, unspecified; Z86.73 Personal history of transient ischemic attack (TIA), and cerebral infarction without residual deficits; Z88.8 Allergy status to other drugs, medicaments and biological substances
CPT/HCPCS: 36415; 70450; 70496; 70498; 71045; 80053; 80305; 81001; 83880; 84484; 85025; 85610; 85730; 93005; 96374; 99285; J1953; J3490; Q9967

== ENCOUNTER 2024-01-21 16:35 | Emergency (ER) | payer MEDICARE, OTHER ==
[~2024-01-21] VITALS: Ht 172.7 cm; Wt 84.1 kg
[2024-01-21] MEDS: normal saline 1000ML IV soln IVB ONE (19:48)
[2024-01-21 19:55] LABS: BASOPHILS # (AUTO) 0.2 X10'3 (0-0.2); BASOPHILS % (AUTO) 1.7 % (0-1); EOSINOPHILS # (AUTO) 0.1 X10'3 (0-0.9); EOSINOPHILS % (AUTO) 1.2 % (0-6); HEMATOCRIT 40.5 % (35.0-45.0); HEMOGLOBIN 13.9 g/dl (12.0-16.0); LYMPHOCYTES # (AUTO) 0.7 X10'3 (1.1-4.8); LYMPHOCYTES % (AUTO) 7.4 % (21-51); MEAN CORPUSCULAR HEMOGLOBIN 33.6 PG (27.0-31.0); MEAN CORPUSCULAR HGB CONC 34.3 g/dL (33.0-36.5); MEAN PLATELET VOLUME 7.3 FL (7.4-10.4); MONOCYTES # (AUTO) 0.8 X10'3 (0-0.9); MONOCYTES % (AUTO) 8.4 % (2-12); NEUTROPHILS # (AUTO) 7.9 X10'3 (1.8-7.7); NEUTROPHILS % (AUTO) 81.3 % (42-75); PLATELET COUNT 297 X10'3 (140-440); RED BLOOD COUNT 4.13 X10'6 (4.20-5.60); RED CELL DISTRIBUTION WIDTH 13.5 % (11.5-14.5); WHITE BLOOD COUNT 9.7 X10'3 (4.5-11.0)
[2024-01-21 20:13] LABS: ALBUMIN 4.2 G/DL (3.4-5.0); ANION GAP 12 (8-16); BLOOD UREA NITROGEN 7 MG/DL (7-18); BUN/CREATININE RATIO 11.9 (10.0-20.0); CALCIUM 9.5 MG/DL (8.5-10.1); CHLORIDE 97 MMOL/L (99-107); CREATININE 0.59 MG/DL (0.40-0.90); ETHANOL < 10 MG/DL (<10); GLUCOSE 100 MG/DL (70-104); POTASSIUM 3.6 MMOL/L (3.5-5.1); SODIUM 134 MMOL/L (135-145); TOTAL CARBON DIOXIDE 25.5 MMOL/L (24-32); eCRCL 79 ML/MIN; eGFR > 90 ML/MIN
[2024-01-21 20:54] LABS: AMMONIA < 10 UMOL/L (11-32)
[2024-01-21 23:22] LABS: BILIRUBIN,URINE NEGATIVE (Neg); CLARITY,URINE SLIGHTLY CLOUDY (Clear); COLOR,URINE YELLOW (Yellow); GLUCOSE, URINE NEGATIVE (Neg); KETONES,URINE NEGATIVE (Neg); LEUKOCYTE ESTERASE ,URINE SMALL (Neg); NITRITES, URINE NEGATIVE (Neg); OCCULT BLOOD,URINE NEGATIVE (Neg); PH,URINE 7.5 (4.8-8.0); PROTEIN,URINE NEGATIVE (Neg); UROBILINOGEN,URINE 0.2 E.U/dL (0.2-1.0)
[2024-01-21 23:25] LABS: UA COLLECTION TYPE NON-SPECIFIED
[2024-01-21 23:31] LABS: BACTERIA,URINE 2+ /HPF (Neg); SQUAMOUS EPITHELIAL CELL,UR MODERATE /LPF (FEW)
[2024-01-21 23:32] LABS: TRANSITIONAL EPI CELLS,URINE FEW /HPF; WBC CLUMPS,URINE FEW /HPF (NEGATIVE)
[2024-01-21 23:33] LABS: RENAL CELLS, URINE FEW /HPF
[2024-01-21] MEDS ORDERED: NITR100C PO (23:47)
[2024-01-21 23:53] LABS: URINE AMPHETAMINE SCREEN NEGATIVE (Neg); URINE BARBITUATE SCREEN NEGATIVE (Neg); URINE BENZODIAZEPINES SCREEN NEGATIVE (Neg); URINE CANNABINOID SCREEN NEGATIVE (Neg); URINE COCAINE SCREEN NEGATIVE (Neg); URINE METHADONE SCREEN NEGATIVE (Neg); URINE OPIATE SCREEN NEGATIVE (Neg); URINE PHENCYCLIDINE SCREEN NEGATIVE (Neg)
[2024-01-22] MEDS: CefTRIAXone/D5W-Rocephin 1gm 50 ML IV ONE
[2024-01-22 00:35] VITALS: BP 103/44; PULSE 78; RESP 16; TEMP 98; O2SAT 96
== END 2024-01-22 00:38 | disposition home or self-care (01) ==
LOC: ER 16:35
DX: N39.0 Urinary tract infection, site not specified (principal); E78.00 Pure hypercholesterolemia, unspecified; I10 Essential (primary) hypertension; R20.2 Paresthesia of skin; Z88.1 Allergy status to other antibiotic agents; Z88.8 Allergy status to other drugs, medicaments and biological substances; Z79.82 Long term (current) use of aspirin; W19.XXXA Unspecified fall, initial encounter; Y93.89 Activity, other specified; Y92.89 Other specified places as the place of occurrence of the external cause; Y99.8 Other external cause status
CPT/HCPCS: 36415; 70450; 71045; 73130; 80048; 80305; 80320; 81001; 82140; 82948; 83605; 84484; 85025; 87040; 87088; 93005; 96361; 96365; 99285; J0696; J7030; J7040; 87077; 87186